=== PATIENT | female | born 1985 | race Hispanic/Latino ===

== ENCOUNTER 2018-07-07 11:59 | Emergency (ER) | payer OTHER, BC ==
[2018-07-07 12:02] VITALS: BMI 22.6
[2018-07-07 12:03] VITALS: BP 105/60; PULSE 65; RESP 17; TEMP 98.7; O2SAT 100
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
== END 2018-07-07 14:32 | disposition home or self-care (01) ==
LOC: H.ER 11:59
DX: M54.2 Cervicalgia (principal); M54.9 Dorsalgia, unspecified; V43.52XA Car driver injured in collision with other type car in traffic accident, initial encounter; Y92.410 Unspecified street and highway as the place of occurrence of the external cause
CPT/HCPCS: 81025; 96372; 99284; J1885